=== PATIENT | female | born 1975 | race African-American/Black ===

== ENCOUNTER 2023-10-07 11:17 | Outpatient (OUT) | payer OTHER, SELFPAY ==
--- NOTE | 2023-10-07 11:20 | MM_ITS ---
Patient Name: DANTE REYNOLDS MR#: [id number] : 1975 Exam Date: 10/07/2023 Ordering Doctor: DR EMMA STALLINGS M.D. RADIOLOGY REPORT PROCEDURE: MM TOMOSYNTHESIS SCREENING BI COMPARISON: MG MAMM SCREEN 3D LEILA CAD, 06/24/2022. MG MAMM SCREEN 3D [facility]ILA CAD, 01/17/2021. MG MAMM SCREEN LEILA W CAD, 06/15/2018. MG MAMM LEILA SCRN W CAD DIG, 07/05/2013. INDICATIONS: screening Calculator Name NCI Breast Cancer Risk Assessment Tool 5 Year Breast Cancer Risk 0.90% Lifetime Breast Cancer Risk 6.70% Personal Breast Cancer No Personal Ovarian Cancer No Treatments None Family Cancers Aunt-maternal with breast cancer at age 50; Father with rectum cancer at age 67. LOCATION: [facility] BREAST COMPOSITION: Heterogeneously dense,which may obscure small masses. FINDINGS: DIAGNOSTIC CATEGORY 1--NEGATIVE. RIGHT BREAST: No significant suspicious finding. No significant change has occurred. LEFT BREAST: No significant suspicious finding. No significant change has occurred. RECOMMENDATIONS: ROUTINE MAMMOGRAM AND CLINICAL EVALUATION IN 12 MONTHS. PLEASE NOTE: A NORMAL MAMMOGRAM DOES NOT EXCLUDE THE POSSIBILITY OF BREAST CANCER. A CLINICALLY SUSPICIOUS PALPABLE LUMP SHOULD BE BIOPSIED. Dictated by: Chan Mary M.D. on 10/09/2023 at 07:06 Approved by: Chan Mary M.D. on 10/09/2023 at 07:10
== END 2023-10-07 11:18 | disposition home or self-care (01) ==
LOC: MAMMO 11:17
PROVIDERS: PCP Family Medicine; Visit Provider Family Medicine
DX: Z12.31 Encounter for screening mammogram for malignant neoplasm of breast (principal); Z80.3 Family history of malignant neoplasm of breast; Z80.8 Family history of malignant neoplasm of other organs or systems
CPT/HCPCS: 77063; 77067